=== PATIENT | male | born 1950 | race Hispanic/Latino ===

== ENCOUNTER 2018-12-06 14:19 | Emergency (ER) | payer OTHER ==
[2018-12-06 14:38] VITALS: BP 134/68
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
[2018-12-06] MEDS ORDERED: TYLENOL PO ONE (15:04)
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
== END 2018-12-06 16:53 | disposition home or self-care (01) ==
LOC: ED 14:19
DX: G44.319 Acute post-traumatic headache, not intractable (principal); I25.2 Old myocardial infarction; Z95.818 Presence of other cardiac implants and grafts
CPT/HCPCS: 70450; 99283